=== PATIENT | female | born 1935 | race Caucasian/White ===

== ENCOUNTER → 2020-06-09 | Outpatient (CLI) | payer MEDICARE, BC ==
[2014-10-26 17:12] VITALS: BP 121/60
[~2020-06-09] MED LIST: ACET500T33 PO; ALPR0.25 PO; ASPI-482 PO; ATOR10TA60 PO; ATOR20TA58 PO; CALC1TAB64 PO; CETI10TA16 PO; CHOL4POW2 PO; GEMF600T20 PO; HYDR-2761 PO; LACT1CAP8 PO; LEVO50TA5 PO; LISI10TA16 PO; LISI20TA18 PO; LOPE2TAB27 PO; METO50TA29 PO; OMEP20TA8 PO
--- NOTE | 2020-06-09 09:29 | RAD ---
Examination: 1. Bilateral digital diagnostic mammogram. 2. Limited right breast ultrasound. INDICATION: 85-year-old woman with a palpable lump in the superior right breast on self exam. Patient reports a remote history of benign right breast biopsy with axillary john paul dissection several decade s ago. COMPARISON: None currently available. TECHNIQUE: CC and MLO views of both breasts were obtained with 2-D and 3-D technique and reviewed wit h computer-aided detection. Targeted ultrasound of the patient's reported area of palpable concern wa s also performed. FINDINGS: The breasts are heterogeneously dense. Left mammogram is negative. Right mammogram shows subtle architectural variation in the area of palpable concern as marked with a triangular marker at the skin surface in the right breast at the approximate 12:00 position 3 cm fro m the nipple. Right axillary surgical clips are incidentally noted as well. Targeted ultrasound of the right breast in the area of patient's reported palpable concern shows a va christine hypoechoic parallel orientation mass measuring approximately 1 cm at the 11:00 position 2 cm from the nipple that correlates with the area of palpable concern and with the area of subtle architectur al distortion on mammography. Adjacent to it is a benign 6 mm cyst with low-level echoes at the 11:00 position 1 cm from the nipple. IMPRESSION: A 1 cm hypoechoic mass in the superior right breast at the 12:00 position 2 cm from the nipple on ult rasound correlates with the palpable area of concern and is mildly suspicious for malignancy. BI-RADS Category 4 Findings suspicious for malignancy Ultrasound-guided right breast core needle biopsy is recommended. Discussed with patient. Findings and recommendations telephoned to the ordering provider's office juanita Frank, nurse for referring provider Toya Stevens PA-C took the telephone report at 9:19 AM on 2020. Electronically signed by: Marques Zarco MD (06/09/2020 9:27 AM) [id number]
== END ==
LOC: MAMMO 07:34
PROVIDERS: ATTEND Physician Assistant Medical
DX: N60.01 Solitary cyst of right breast (principal); N63.11 Unspecified lump in the right breast, upper outer quadrant
CPT/HCPCS: 76641; 77066; G0279; 77062

== ENCOUNTER → 2020-07-08 | Outpatient (CLI) | payer MEDICARE, BC ==
[2014-10-26 17:12] VITALS: BP 121/60
[~2020-07-08] MED LIST changes: -ATOR20TA58 PO; -CETI10TA16 PO; -HYDR-2761 PO; -LISI10TA16 PO; -LOPE2TAB27 PO
--- NOTE | 2020-07-08 14:40 | RAD ---
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 This is a malignant concordant result. Recommend medical on cologic and surgical consultation. Given that the patient is heterogeneously dense on mammography and that the mammographic finding is subtle, further imaging by staging breast MRI could be considered i f clinically warranted. Electronically signed by: Marques Zarco MD (07/12/2020 4:04 PM) [id number] ORIGINAL REPORT Examination: 1. Ultrasound-guided right breast core needle biopsy. 2. Right postprocedure mammogram. COMPARISON: Right breast ultrasound of 06/09/2020. Right digital diagnostic mammogram of that same eleni e. TECHNIQUE AND FINDINGS: Informed consent was obtained and an appropriate procedural pause observed. Using standard sterile te chnique, ultrasound guidance and local anesthesia, multiple core biopsy samples of the 1 cm palpable mass in the right breast at the 12:00 position 2 cm from the nipple were obtained and placed in forma lang using a 14-gauge spring-loaded biopsy needle. An S-shaped biopsy marker was deployed in the lesion and hemostasis ensured with direct breast compre ssion for 10 minutes. Post procedure mammogram showed satisfactory deployment of the biopsy marker in the area of mammograp hic and clinical concern with no postbiopsy hematoma. IMPRESSION: Successful uncomplicated ultrasound-guided core needle biopsy of a palpable 1 cm mass in the superior right breast. Pathology results are pending. An addendum will be issued once pathology results becom e available. Electronically signed by: Marques Zarco MD (07/08/2020 2:38 PM) [id number]
--- NOTE | 2020-07-09 15:07 | PATHOLOGY ---
[facility] Accession Number: [id number] . 01 Material submitted: . breast - RIGHT BREAST MASS 12:00 2CMFN. Modifiers: right . 01 Clinical history: . RIGHT BREAST MASS . 02 Diagnosis: Breast tissue, right breast mass 12:00 needle biopsies: - INVASIVE DUCTAL CARCINOMA, HISTOLOGIC GRADE 1. SEE COMMENT. LBQ 07/09/2020 1229 Local . 02 Comment: Sections of the right breast mass at 12:00 needle biopsy reveal an invasive mammary carcinoma. The tumor shows moderate tubule formation. Tumor cells are also present in small solid nests and cords. Tumor cells show mild nuclear pleomorphism. A few mitotic figures are demonstrated. There are a few tumor associated calcifications. There is no lymphovascular tumor invasion. The invasive carcinoma measures up to 1.4 cm in greatest dimension on the glass slide. The morphologic findings are supportive of the diagnosis of an invasive ductal carcinoma, histologic grade 1. Breast prognostic studies will be obtained on block A2, the results of which will be reported separately. The case is also examined by Dr. Ramirez, who concurs with the diagnosis. (JPM/db; 07/09/2020) . 02 Electronically signed: . Yordan Jaffe MD, Pathologist NPI- [id number] . 01 Gross description: . The specimen is received in formalin, labeled "Jude, Imla, right breast BX" and consists of 3 needle cores of yellow-pink tissue measuring between 1.5 cm and 1.8 cm in length and 0.2 cm each in diameter which are entirely submitted in A1-A3. The specimen was collected at 10:12 AM on 07/08/2020 and placed in formalin at 10:13 AM. The cold ischemic time is 1 minute and the total formalin fixation time is greater than 6 hours less than 72 hours. (SDY; 07/08/2020) SYU/SYU 07/08/2020 1503 Local . 02 Pathologist provided ICD-10: C50.911 . 02 CPT . 297410 Specimen Comment: A courtesy copy of this report has been sent to [phone] Specimen Comment: Report sent to Performed at: 01 [facility] [address], [place] [id number] MD Shankar Ramirez MD Phone: [phone] Performed at: [address] [facility] [address], [place] [id number] MD Yordan Jaffe MD Phone: [phone]
== END | disposition home or self-care (01) ==
LOC: US 09:24
PROVIDERS: ATTEND Surgery
DX: N63.11 Unspecified lump in the right breast, upper outer quadrant (principal); C50.911 Malignant neoplasm of unspecified site of right female breast; E78.00 Pure hypercholesterolemia, unspecified; I10 Essential (primary) hypertension; K21.9 Gastro-esophageal reflux disease without esophagitis; J45.909 Unspecified asthma, uncomplicated; M19.90 Unspecified osteoarthritis, unspecified site; E03.9 Hypothyroidism, unspecified; Z90.49 Acquired absence of other specified parts of digestive tract; Z90.710 Acquired absence of both cervix and uterus; Z98.890 Other specified postprocedural states; Z79.899 Other long term (current) drug therapy; Z79.82 Long term (current) use of aspirin; Z85.828 Personal history of other malignant neoplasm of skin; Z72.89 Other problems related to lifestyle; Z82.49 Family history of ischemic heart disease and other diseases of the circulatory system; Z83.3 Family history of diabetes mellitus; Z80.3 Family history of malignant neoplasm of breast; Z88.5 Allergy status to narcotic agent; Z88.8 Allergy status to other drugs, medicaments and biological substances
CPT/HCPCS: 19083; 77065; 88305; C1713

== ENCOUNTER → 2020-08-20 | Outpatient (CLI) | payer MEDICARE, BC ==
[2014-10-26 17:12] VITALS: BP 121/60
[~2020-08-20] MED LIST changes: +ATOR20TA58 PO; +CETI10TA16 PO; +HYDR-2761 PO; +LISI10TA16 PO; +LOPE2TAB27 PO
== END ==
LOC: LAB 11:12
PROVIDERS: ATTEND Surgery
DX: Z01.812 Encounter for preprocedural laboratory examination (principal); C50.919 Malignant neoplasm of unspecified site of unspecified female breast; Z20.822 Contact with and (suspected) exposure to COVID-19
CPT/HCPCS: U0003

== ENCOUNTER 2020-08-25 06:19 | Day surgery (SDC) | payer MEDICARE, BC ==
[~2020-08-25] VITALS: Ht 165.1 cm; Wt 67.0 kg
[~2020-08-25 06:19] MED LIST changes: +ACETAMINOPHEN 500 MG TABLET PO PRN; -HYDR-2761 PO; +HYDROmorphone 2 MG/ML VIAL IVP PRN; +IV RINGERS,LACTATED 1000ML 1,000 ML IV SCH; +MORPHINE SULFATE 2 MG/ML VIAL. IVP PRN; +PROCHLORPERAZINE 10 MG/2 ML VIAL. IVP PRN; +ceFAZolin SODIUM IV Push 1 GM VIAL. IVP PRN; +fentaNYL PF VIAL 100 MCG/2 ML VIAL IVP PRN
[2020-08-25] MEDS ORDERED: ISOSULFAN BLUE 1% 50 MG/5 ML VIAL. SQ ONE (07:10)
[2020-08-25] MEDS ORDERED: BUPIVACAINE-EPI 0.25% 30 ML VIAL KIT. ONE (07:10)
[2020-08-25] MEDS ORDERED: SCOPOLAMINE 1.5MG PATCH. TD ONE (07:30)
[2020-08-25] MEDS ORDERED: LIDOCAINE 2% PF 5 ML VIAL. ONE (08:04)
[2020-08-25] MEDS ORDERED: PROPOFOL 10 MG/ML (20ML) VIAL. IV ONE (08:04)
[2020-08-25] MEDS ORDERED: fentaNYL PF VIAL 100 MCG/2 ML VIAL ONE ×2 (08:05→10:25)
[2020-08-25] MEDS ORDERED: ePHEDrine PF IN SALINE 50 MG/10 ML SYRINGE. IV ONE (09:19)
[2020-08-25] MEDS ORDERED: DEXAMETHASONE SOD PHOS 4 MG/ML VIAL ONE (09:23)
[2020-08-25] MEDS ORDERED: FAMOTIDINE 20 MG/2 ML VIAL ONE (09:23)
[2020-08-25] MEDS ORDERED: ONDANSETRON PF 4 MG/2 ML VIAL. ONE (09:23)
--- NOTE | 2020-08-25 10:15 | PDOC4 ---
Operative Note Operative Note Date: August 252020 at 1011 Preoperative diagnosis: Right breast cancer Postoperative diagnosis: Same Procedure: Right breast lumpectomy and sentinel node biopsy Surgeon: Jesu Specimen: Right breast lumpectomy specimen and 2 sentinel lymph nodes Dictation: Patient is 85-year-old female who recently had a stereotactic breast biopsy showed invasive adenocarcinoma the breast. Procedure of lumpectomy with sentinel lymph node biopsy was explained to the patient detail risk benefits were also discussed occluding bleeding infection alternatives to this procedure also discussed with the patient who seemed to understand and gave both verbal and written consent to have the procedure performed. Patient was injected with radionucleotide in radiology and brought to the OR suite was placed in supine position general anesthesia was initiated once patient was sleeping intubated her right chest and breast as well as axilla were prepped and draped in usual st erile fashion using ChloraPrep. An area in the 4 quadrants around the nipple areolar complex was injected with Lymphazurin and this was allowed to percolate for 5 minutes. An area in the axilla was incised with 15 blade scalpel is carried down through the subcutaneous tissue using electrocautery right hemostasis dissection occurred through the subcutaneous tissue in the axilla wi th Metzenbaum scissors and electrocautery until 2 fairly large lymph nodes which showed Lymphazurin blue as well as high values on the C-Trak. These were sent for pathology. The wound was packed with Ray-Kaiden's and attention was returned to the breast lumpectomy incision was made over the previous biopsy site this was carried down through subcutaneous tissues electrocautery right hemostasis large mass of tissue from the breast was excised sharply with electrocautery. The mass was marked with silk suture the short suture being the superior margin long suture being the lateral margin and the double suture being the deep margin, and then sent for radiology examination x-ray showed the marker to be in place within the specimen. The wound was then irrigated with saline and suctioned dry wound was closed in 2 layers the deep layer running 3-0 Vicryl and the skin was reapproximated for subicular Monocryl. The axillary wound was also closed in 2 layers deep layer running 3-0 Vicryl and the skin was reapproximated for subcuticular Monocryl Mastisol Steri-Strips and island dressings were applied. Patient was awakened and extubated operating room taken recovery in stable condition all sponge instrument needle counts listed as correct estimated blood loss 30 mL RENTAO MOSS MD Aug 25, 2020 10:15
--- NOTE | 2020-08-25 10:20 | DISCH ---
DISCHARGE INSTRUCTIONS Condition on Discharge Condition on Discharge: Stable Activity After Discharge Activity Instructions for Disc: Activity as tolerated Diet after Discharge Diet after Discharge: Regular Wound Incision Care Other wound/incision instructi: May shower in 24 hours Contacting the DRFloresita after DC Call your doctor for: If your condition worsens Follow-Up Follow up with: Dr. Moss in 2 weeks Treatment/Equipment after DC Adaptive Equipment Issued: None RENATO MOSS MD Aug 25, 2020 10:20
[2020-08-25] MEDS ORDERED: HYDR-2761 PO (10:40)
[2020-08-25] MEDS ORDERED: HYDROcodone/APAP 5/325MG 1 TAB TABLET PO ONE ×2 (11:15)
[2020-08-25 11:26] VITALS: BP 125/58
--- NOTE | 2020-08-25 14:08 | RAD ---
Examination: 1. Right breast radiopharmaceutical injection for sentinel node mapping. 2. Right lumpectomy specimen radiograph. INDICATION: 85-year-old woman with a diagnosis right breast cancer referred for radiopharmaceutical i njection for sentinel node mapping. The surgical specimen post lumpectomy was also requested for carlie monaco. COMPARISON: Right post procedure mammogram of 07/08/2020. TECHNIQUE AND FINDINGS: Informed consent was obtained and an appropriate procedural pause observed. Using sterile technique a nd local anesthesia with topical spray, a total of 1000 mCi of technetium labeled Tilmanocept radioph armaceutical was injected in a single superior periareolar right breast injection at approximately 8: 40 AM on August 25, 2020. The wheal was massaged, the puncture site dressed and the patient transporte d to the perioperative care unit for further care and management by her surgeon. Later the same day, a right breast surgical specimen intraoperatively was acquired and a specimen rad iograph was obtained. The specimen in the specimen cup shows the presence of the biopsy marker as wel l as the targeted mass. Biopsy marker lies just below the F row between columns 5 and 6. IMPRESSION: 1. Uncomplicated right breast injection of radiopharmaceutical for sentinel node mapping intraoperati vely. 2. Surgical specimen contains the targeted mass and the biopsy marker. This was telephoned to and discussed with Dr. Nails in the operating room at 10:07 AM on 08/25/2020. Electronically signed by: Marques Zarco MD (08/25/2020 2:06 PM) [id number]
== END 2020-08-25 12:00 | disposition home or self-care (01) ==
LOC: SURG 06:19
PROVIDERS: ATTEND Surgery
DX: C50.911 Malignant neoplasm of unspecified site of right female breast (principal); E78.00 Pure hypercholesterolemia, unspecified; I10 Essential (primary) hypertension; J45.909 Unspecified asthma, uncomplicated; K21.9 Gastro-esophageal reflux disease without esophagitis; M19.90 Unspecified osteoarthritis, unspecified site; E03.9 Hypothyroidism, unspecified; Z85.828 Personal history of other malignant neoplasm of skin; Z79.899 Other long term (current) drug therapy; Z98.890 Other specified postprocedural states; Z82.49 Family history of ischemic heart disease and other diseases of the circulatory system; Z83.3 Family history of diabetes mellitus; Z72.89 Other problems related to lifestyle; Z88.5 Allergy status to narcotic agent; Z88.8 Allergy status to other drugs, medicaments and biological substances
CPT/HCPCS: 19302; 38505; 38792; 76098; 96374; A4209; A4930; A6402; A9520; J0690; J1100; J2405; J2704; J3010; J3490; Q9968